=== PATIENT | female | born 1960 | race Caucasian/White ===

== ENCOUNTER 2017-12-23 08:00 | Outpatient (RCR) | payer BC, SELFPAY ==
--- NOTE | 2017-12-01 14:28 | HP.OTEVAL_ITS ---
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 Date of Evaluation: 11/30/17 Occupational Therapist: Fabiola Araujo, AMADOU/Daniel, CHT - Subjective Subjective: Pt states on September 29, 2017 she suffered a fall, had x-rays in October with not evidence of fx. pt went to for follow up and he has refered her to OT for a custom CMC orthosis. PT states she may have had OA prior to her fall but since her fall her hand/ thumb has been very painful- pt states she was taking 8 Alive a day to try to get her pain under control. PT states she contiunes to have pain down the radial side of her tumb past her radius. pt states pain limits her from using her right hand with ADLS and IADLS. - Pain right thumb pain 2 Pain Intensity Range: 2, 7 - ROM Wrist: right 60/65 left 70/75 CMC: right 10 left 25 MP: right 70 left 55 IP: right 65 left 55 - Strength Electronics Utility Worker: right 45# left 55# Lateral Pinch: right 10# left 8# Tripod Pinch: right 8# left 8# - DASH-Disabilities of Arm, Shoulder& Hand DASH Sum: 94 - Goals Goal:: pt will demo a increase in right assembler fitter strength by 10# to increase pts ind. with BADLs and IADLS by d/c. pt will demo a increase in right tripod and lateral pinch by 2# to increase pts ind. with FMS and use of bilateral hands for meal prep and cooking tasks by d/c Goal:: pt will demo a increase in right wrist ROM equal to left by D/C to return pt to PLOF with ADLs and IADLS. Goal:: pt will report pain no greater than 2/10 with use of right hand for ADls and IADLs by d/c Goal:: pt will demo the ability to manipulate small coins, buttons, zippers at ind. level to increase her ind. with ADLs and IADLs by d/c Goal:: pt will demo understanding of joint protection mari. and ad. eq to decrease right wrist/thumb pain with use of right hand with ADLS and IADLS by d/ c - Rehabilitation General Assessment: PT demo decrease in functional ROM of right wrist/thumb. pain limiting pts ind. with all ADLs and IADLS. With manual testing MPJ its noted that ulnar deviation of right MP joint is more than left. Pt would benefit from skilled OT services 2xweek for 6 weeks to decrease pain- katheryn. custom orthosis to allow for healing and support, and PRE. pt would benefit from ed. on joint protection and ad. eq. for daily occupations. Rehabilitation Potential: Good - Anticipated Interventions Anticipated Interventions: A/AAROM/PROM, Strengthening, Triggerpoint Release, Modalities, Orthoses, Joint Protection/Energy Conservation, Fine Motor Coord/ Darci - Visit Plan Frequency: 2x /Week Duration: 6 Weeks TEXT: Thank you for the opportunity to evaluate your patient. For Medicare and Medicare HMO plans, please review the plan of care and approve it. It will need to be FAXED BACK to us at [phone] for Medicare purposes. Please let me know if there are questions or concerns regarding this plan of care. Physician Signature: Date:
--- NOTE | 2018-02-07 11:33 | HP.OTDCSUM ---
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 Please see the following information for a summary of their discharge status. - Objective Objective/Function: Pt states she has not had improvement at this time. Pt to return for further evaluation by - Goals Patient Goals: Regain Strength, Decrease Pain, Return to Work, Improve Fine Motor Skills, Use Hand/Wrist/Arm Normally Again, Sleep Better Goal:: pt will demo a increase in right metal furniture glazier strength by 10# to increase pts ind. with BADLs and IADLS by d/c. pt will demo a increase in right tripod and lateral pinch by 2# to increase pts ind. with FMS and use of bilateral hands for meal prep and cooking tasks by d/c Goal:: pt will demo a increase in right wrist ROM equal to left by D/C to return pt to PLOF with ADLs and IADLS. Goal:: pt will report pain no greater than 2/10 with use of right hand for ADls and IADLs by d/c Goal:: pt will demo the ability to manipulate small coins, buttons, zippers at ind. level to increase her ind. with ADLs and IADLs by d/c Goal:: pt will demo understanding of joint protection mari. and ad. eq to decrease right wrist/thumb pain with use of right hand with ADLS and IADLS by d/c - Plan Plan: D/C - D/C Information Discharge Comments: pt return to for further evaluation. If there are questions or concerns regarding this patient's occupational therapy, please fell free to call me at [phone]. Thank you for the referral of this patient. Sincerely, Fabiola Araujo, OTR/L, CHT
== END 2017-12-23 19:00 | disposition home or self-care (01) ==
LOC: OT 08:00
PROVIDERS: Family Provider Family Medicine; PCP Family Medicine; Visit Provider Physician Assistant Surgical
DX: M18.11 Unilateral primary osteoarthritis of first carpometacarpal joint, right hand (principal); M79.641 Pain in right hand
CPT/HCPCS: 97035; 97110; 97166; 97530; 97763

== ENCOUNTER → 2018-06-16 07:53 | Outpatient (CLI) | payer BC, SELFPAY ==
--- NOTE | 2018-06-16 08:05 | RAD_ITS ---
STUDY: X-RAY - ESOPHAGUS (BARIUM SWALLOW) WITH FLUOROSCOPY REASON FOR EXAM: Female, 58 years old. History of gastroesophageal reflux. TECHNIQUE: view(s) of the esophagus were obtained following swallowing of barium. FLUOROSCOPY TIME (if supplied): (0:33) minutes/seconds COMPARISON: None. FINDINGS: There is no demonstrated esophageal foreign body. There is no demonstrated stricture or mucosal abnormality. There is a small hiatal hernia of the fundus of the stomach. No evidence of gastroesophageal reflux. The patient ingested a 12 mm tablet of barium without any difficulty Normal visualized aortic arch and descending thoracic aorta. Normal visualized pulmonary parenchyma. Normal visualized osseous structures of the thorax. RAD/Esophagus Only IMPRESSION: Small sliding hiatal hernia without gastroesophageal reflux. Electronically Signed: Lberon Olivera, at 8:28 EDT , Service support ,
== END ==
PROVIDERS: Family Provider Family Medicine; PCP Family Medicine; Referring Provider Family Medicine; Visit Provider Family Medicine
DX: K21.9 Gastro-esophageal reflux disease without esophagitis (principal)
CPT/HCPCS: 74220

== ENCOUNTER → 2018-07-07 16:01 | Outpatient (CLI) | payer BC, SELFPAY ==
--- NOTE | 2018-07-07 | GASB_PTH ---
PATIENT: DEMETRIO FELTON LOC: [facility] U#:[id number] AGE/SX: 64/F ROOM: RE07/07/[address]: Dr. Dominic Ro MD : [id number] BED: DIS: SPEC #: [id number] RECD: 07/07/18 15:22 STATUS: VIOLETTA HOLLISJordyn #: [id number] HOLLY: 07/07/18 00:[address]: Dominic Ro DEPT: SURGICAL PATHOLOGY RECD BY: Chet Wilkins ENTERED: 07/10/18 12:59 SP TYPE: Gastric Bx OTHR DR: Dr. Guillermo Whitehead MD [facility] Tissues: Gastric mucous membrane Procedures: Surgery Specimen Level IV HEADER OPERATION: EGD with biopsies PRE-OP DIAGNOSIS: GERD; epigastric pain TISSUE SUBMITTED: Gastric antrum body biopsies, rule out gastritis MICROSCOPIC DIAGNOSIS Antrum body, biopsy: A minute fragment of blood clot. No mucosal tissue is identified in the submitted specimen. SJ:sana 07/11/18 COMMENT This information is conveyed to the Dr. Ro's office on 07/11/18. Case has been reviewed in consultation with Dr. Avila who concurs with the above diagnosis. IDC:AM MICROSCOPIC DESCRIPTION Slides are reviewed. GROSS DESCRIPTION Received in fixative is one container labeled with the patient's name and designated gastric antrum body biopsy. The specimen consists of a minute fragment of snow soft tissue measuring <0.1 cm in greatest dimension. The specimen may not survive processing. The specimen is totally submitted in one cassette. / PILAR:sana 07/10/18 TC: Cannot code CPT: 89299
== END ==
PROVIDERS: Family Provider Family Medicine; PCP Family Medicine; Referring Provider Internal Medicine Gastroenterology; Visit Provider Internal Medicine Gastroenterology
DX: K21.9 Gastro-esophageal reflux disease without esophagitis (principal); R10.13 Epigastric pain
CPT/HCPCS: 88305